=== PATIENT | male | born 1960 | race Caucasian/White ===

== ENCOUNTER → 2016-02-23 | Outpatient (CLI) | payer MEDICARE, OTHER ==
[~2016-02-23] VITALS: Ht 175.3 cm; Wt 77.0 kg
[~2016-02-23] MED LIST: CINN500T PO; DEPA500T3 PO; DEXTROSE 5% IN WATE 1000ML INJ 1,000 ML IV SCH; FLUMAZENIL 1 MG/10 ML VIAL IV PUSH ONE; GABA100C4 PO; HALC0.25 PO; HALO2TAB PO; INSULIN HUMAN REGULAR 1,000 UNITS/10 ML VIAL SQ PRN; LACTATED RINGER'S 1000 ML IV SCH; LORA1TAB12 PO; METOPROLOL TARTRATE 25 MG TAB PO PRN; MIRA33504 PO; MULT-135 PO; OMEPPOW PO; PAXI30TA7 PO; PROPOFOL 200 MG/20 ML AMP IV ONE; SODIUM CHLORID 0.9% 500 ML IV SCH; TRAM50TA PO; VITA500C9 CHEW; [UNRECOGNIZED DRUG - CODE] PO
--- NOTE | 2016-02-23 09:10 | PD.HP.UP ---
H&P Update Note The Pre-Admit History and Physical Examination regarding the above named patient was reviewed (including, but not limited to, vital signs, heart, lungs, co-morbid conditions), and upon re-examination it is noted that: the patient's condition has not significantly changed since the last examination. Jad Valdez MD Feb 23, 2016 09:10
[2016-02-23 10:15] VITALS: BP 114/89; PULSE 76; RESP 20; TEMP 98.1; O2SAT 95
[2016-02-23 12:07] VITALS: BP 110/75
--- NOTE | 2016-02-23 12:23 | EKG ---
Date Performed: 02/23/2016 Time Performed: 09:44:50 PTAGE: 55 years EKG: Sinus rhythm INDETERMINATE AXIS ATYPICAL ECG PREVIOUS TRACING : 01/24/2012 09.36 DOCTOR: Amando Beltran Interpretating Date/Time 02/23/2016 12:20:39
--- NOTE | 2016-02-23 12:56 | MR ---
cc: LALI BUSBY M.D. DATE: February 23, 2016 PREOPERATIVE DIAGNOSIS Rectal bleeding hemorrhoids PROCEDURE Sigmoidoscopy to left colon Anoscopy. Attempted hemorrhoid ligation. POSTOPERATIVE DIAGNOSIS 1. Normal rectosigmoid left colon. 2. Large prolapsing internal-external hemorrhoids SURGEON Dr. Busby PROCEDURE The patient was placed in the left lateral decubitus position. After adequate anesthesia sedation rectal exam confirmed the emptiness the rectal vault. Olympus colonoscope was introduced into rectum, advanced easily under direct vision through the rectum rectosigmoid up into the left colon. No sign of any active bleeding was seen. The mucosa appeared normal. The stool that was present appeared to be normal. No inflammatory changes were noted. Colonoscope was then gradually withdrawn noting few diverticula but no sign of any active bleeding. Rectal vault was pretty unremarkable. Next, the anoscope was inserted and hemorrhoids were examined. There were fairly large prolapsing hemorrhoids in the left lateral position and across the anterior part of the canal. Attempts and ligation unsuccessful due to the large nature of the hemorrhoids and large external component of the cushions. There did appear to be some friability of the internal hemorrhoids. The patient tolerated the procedure quite well and was brought to recovery room in stable condition. MD ANURADHA Parikh/jayme /12:01 PM /12:44 PM
[2016-02-23 14:45] VITALS: PULSE 85; O2SAT 95
== END ==
LOC: HEND 09:27
PROVIDERS: ATTEND Colon & Rectal Surgery
DX: K64.8 Other hemorrhoids (principal); K62.5 Hemorrhage of anus and rectum; K59.00 Constipation, unspecified; Z01.810 Encounter for preprocedural cardiovascular examination
CPT/HCPCS: 93005

== ENCOUNTER → 2016-09-07 | Outpatient (CLI) | payer MEDICARE, OTHER ==
[~2016-09-07] MED LIST changes: -DEXTROSE 5% IN WATE 1000ML INJ 1,000 ML IV SCH; -FLUMAZENIL 1 MG/10 ML VIAL IV PUSH ONE; -INSULIN HUMAN REGULAR 1,000 UNITS/10 ML VIAL SQ PRN; -LACTATED RINGER'S 1000 ML IV SCH; -METOPROLOL TARTRATE 25 MG TAB PO PRN; -PROPOFOL 200 MG/20 ML AMP IV ONE; -SODIUM CHLORID 0.9% 500 ML IV SCH
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
== END ==
LOC: HRAD 11:15
DX: R13.10 Dysphagia, unspecified (principal)
CPT/HCPCS: 74230; 92611; G8996; G8997; G8998